=== PATIENT | female | born 1945 | race Caucasian/White ===

== ENCOUNTER 2021-03-27 18:07 | Emergency (ER) | payer MEDICARE, OTHER ==
[2021-03-27 18:38] LABS: BASOPHIL 0.3 % (0-2); EOSINOPHIL 0 % (0-7); HCT 43.8 % (37.0-47.0); HGB 15.3 g/dl (12.5-16.0); LYMPHOCYTE 14.1 % (15-48); MCHC 34.9 g/dL (32.0-36.0); MCV 94.4 fL (78.0-100.0); MONOCYTE 5.2 % (0-12); MPV 8.4 fL (6.0-9.5); NEUTROPHIL 80.1 % (41-80); NRBC 0; PLT 261 K/uL (150-400); RBC 4.64 M/uL (4.20-5.40); RDW 12.5 % (11.5-14.0); WBC 7.2 K/uL (4.0-10.5)
[2021-03-27 18:49] LABS: INR 1.04 (0.9-1.2)
[2021-03-27 18:56] LABS: BILIRUBIN - TOTAL 0.7 mg/dL (0.2-1.0); BUN/CREAT RATIO (CALC) 21.3 RATIO; CREATININE 0.94 mg/dL (0.51-0.95); GLOBULIN (CALCULATION) 3.4 g/dL; POTASSIUM 3.8 mmol/L (3.5-5.1); TOTAL PROTEIN 7.4 g/dL (6.4-8.2)
== END 2021-03-27 22:57 | disposition home or self-care (01) ==
LOC: FER 18:07
PROVIDERS: Internal Medicine
DX: I10 Essential (primary) hypertension (principal); R07.89 Other chest pain; Z91.040 Latex allergy status
CPT/HCPCS: 36415; 71045; 80053; 84484; 85025; 85610; 85730; 93005; J3490